=== PATIENT | female | born 1955 | race Caucasian/White ===

== ENCOUNTER 2022-08-03 09:00 | Outpatient (CLI) | payer MEDICARE, OTHER ==
--- NOTE | 2022-08-03 15:29 | XRAY Report ---
PROCEDURE: Wrist 3 View LT INDICATIONS: LEFT WRIST SPRAIN TECHNIQUE: 3 views of the wrist were acquired. COMPARISON: None. FINDINGS: Bones: There is a comminuted, displaced, angulated and overriding fracture of the distal radius. Add itional displaced fracture of the ulnar styloid. Soft tissues: Diffuse soft tissue swelling of the wrist. IMPRESSION: Comminuted, displaced, medially, and overriding fractures of the distal radius. Displaced ulnar styloid fracture. Reviewed by: Hesham Simons DO on 08/03/2022 2:27 PM KRISTOPHER Approved by: Hesham Simons DO on 08/03/2022 2:27 PM KRISTOPHER Station ID: [id number]
== END 2022-08-03 23:59 | disposition home or self-care (01) ==
LOC: DI.S 09:00
PROVIDERS: ATTEND Physician Assistant Medical
DX: S52.502A Unspecified fracture of the lower end of left radius, initial encounter for closed fracture (principal); S52.612A Displaced fracture of left ulna styloid process, initial encounter for closed fracture